=== PATIENT | female | born 1975 | race African-American/Black ===

== ENCOUNTER 2018-04-16 07:43 | Outpatient (CLI) | payer OTHER ==
--- NOTE | 2018-04-16 11:56 | NM ---
PARATHYROID SCAN: DATE: 04/16/18. HISTORY: Elevated PTH, elevated calcium. RADIOPHARMACEUTICAL: 26 mCi Technetium 99m sestamibi, IV. VIEWS OBTAINED: Anterior and oblique 1-hour and 2-hour delayed images with SPECT imaging also performed. FINDINGS: There is normal uptake in the salivary glands. Uptake is seen in each lobe of the thyroid gland whic h is overall symmetric, but there a focal area of increased uptake of radiotracer seen just inferior to the left lobe of the thyroid gland on the 1-hour delayed image which does appear slightly more int ense than that of thyroid gland and also persists on the 2-hour delayed image. No other areas of abn ormal uptake of radiotracer are seen. IMPRESSION: Focus of abnormal uptake of radiotracer is seen just inferior to the left lobe of the thyroid gland w hich may be related to parathyroid lesion such as a parathyroid adenoma. POS: THOMAS
== END 2018-04-16 07:44 | disposition home or self-care (01) ==
LOC: NM 07:43
PROVIDERS: ATTEND Family Medicine
DX: R94.6 Abnormal results of thyroid function studies (principal); R93.8 Abnormal findings on diagnostic imaging of other specified body structures
CPT/HCPCS: 78072; A9500

== ENCOUNTER 2018-06-28 08:21 | Outpatient (CLI) | payer OTHER | END 2018-06-28 08:22 | disposition home or self-care (01) | LOC: BICCT 08:21 | PROVIDERS: ATTEND Family Medicine | DX: E34.9 Endocrine disorder, unspecified (principal); E07.9 Disorder of thyroid, unspecified | CPT/HCPCS: 70492 ==

== ENCOUNTER 2018-09-20 06:46 | Observation (INO) | payer OTHER ==
[2018-09-05 10:14] VITALS: BMI 23.2
[2018-09-20] MEDS ORDERED: Midazolam HCl 2 mg/2 ml Vial ONE ×2 (11:13→11:15)
[2018-09-20] MEDS ORDERED: Fentanyl 100 MCG/2 ML VIAL ONE ×2 (11:13→14:02)
[2018-09-20] MEDS ORDERED: Lidocaine 1% w/Epinephrine 1:100K 30 ML VIAL ONE (11:14)
[2018-09-20] MEDS ORDERED: Dexamethasone 20 MG/5 ML VIAL ONE (11:45)
[2018-09-20] MEDS ORDERED: PROPOFOL 200 MG/20 ML VIAL ONE (11:45)
[2018-09-20] MEDS ORDERED: Lidocaine 1% PF 5 ML VIAL ONE (11:45)
[2018-09-20] MEDS ORDERED: Succinylcholine Chloride 20 MG/ML 10 ml SYRINGE FS ONE (11:45)
[2018-09-20] MEDS ORDERED: Ondansetron PF 4 MG/2 ML Vial ONE (11:45)
[2018-09-20] MEDS ORDERED: Promethazine 25 MG TAB PO PRN (15:46)
[2018-09-20] MEDS ORDERED: Promethazine HCl 25 MG/ML VIAL SLOW IVP PRN (15:46)
[2018-09-20] MEDS: Hydrocodone-Acetamin 15 ML UDCUP PO PRN ×2 (15:56→22:13)
--- NOTE | 2018-09-20 16:27 | OP ---
DATE OF PROCEDURE: 09/20/2018 PREOPERATIVE DIAGNOSES: Hypercalcemia and primary hyperparathyroidism. POSTOPERATIVE DIAGNOSES: Hypercalcemia and primary hyperparathyroidism. PROCEDURE PERFORMED: Neck exploration using laryngeal nerve monitoring with left parathyroidectomy. FINDINGS: The patient was found to have an isolated parathyroid adenoma below the left inferior lobe of the thyroid gland. PROCEDURE IN DETAIL: After consent was obtained, the patient was identified, brought to the operatin g room and placed on the operating table in supine position. General endotracheal anesthesia was obt ained with a nerve integrity endotracheal tube, monitoring endotracheal tube and that was documented to be in appropriate position. We then prepped and draped and positioned the patient, infiltrated th e lower neck with 1% lidocaine with 1:100,000 epinephrine. In a natural skin crease, we made an inci edith through the skin, subcutaneous tissues and dermis. We then dissected down through the platysma and raised subplatysmal flaps both inferiorly and superiorly. The patient had large dilated blood ve ssels were suture ligated when appropriate. Hemostasis was obtained and a self-retaining retractor w as placed. We then divided the strap muscles and got down to the thyroid capsule, which allowed the strap muscles to be retracted laterally as the left thyroid lobe was exposed. With meticulous hemostatic dissection, we were able to identify a left inferior lobe and the associated parathyroid g land, which was carefully removed with caution not to injure any of the surrounding structures or the recurrent laryngeal nerve. This was removed and sent for histologic evaluation and attention was tu rned to closure. The strap muscles were reapproximated as was the platysma and subcutaneous tissues and the skin was closed with a subcuticular suture. Sterile dressings were applied and Steri-Strips and the patient was awakened and taken to recovery room where she remained in stable condition prior to discharge home.
[2018-09-21] MEDS: Hydrocodone-Acetamin 15 ML UDCUP PO PRN ×2 (00:09→08:58)
[2018-09-21 07:23] VITALS: BP 107/65; TEMP 98.6
== END 2018-09-21 10:30 ==
LOC: SDC 06:46 → SURG B 13:59
PROVIDERS: ADMIT Specialist; ATTEND Specialist
PROC: 0GTR0ZZ Resection of Parathyroid Gland, Open Approach (ICD-10-PCS; principal; 2018-09-20)
DX: E21.0 Primary hyperparathyroidism (principal); Z79.899 Other long term (current) drug therapy; Z88.5 Allergy status to narcotic agent
CPT/HCPCS: 85014; 88305; 88331; 88334; 96374; G0378; J1100; J2001; J2250; J2405; J2704; J3010

== ENCOUNTER 2019-02-08 08:33 | Outpatient (CLI) | payer OTHER ==
--- NOTE | 2019-02-08 15:22 | NM ---
NUCLEAR MEDICINE PARATHYROID SCAN: DATE: 02/08/2019. HISTORY: Endocrine disorder, unspecified. Elevated parathyroid hormone. Interval surgery when compared to pr ior parathyroid scan on 04/16/2018 and the patient notes that a parathyroid lesion was removed at the time of surgery. RADIOPHARMACEUTICAL: 20 mCi Technetium 99m sestamibi, IV. VIEWS OBTAINED: Anterior and oblique images as well as SPECT imaging were performed. COMPARISON: 04/16/2018. FINDINGS: Immediate anterior and oblique as well as 1 hour and 2 hour delayed images are obtained of the upper chest, neck, and head. There is normal uptake within the salivary glands bilaterally which is symmetric. There is also symm etric uptake within the thyroid gland bilaterally on the immediate images with normal unexpected wash out of the thyroid glands on delayed imaging. No focal area of increased uptake of radiotracer is se en within the region of the thyroid gland to suggest evidence of a parathyroid adenoma. The previous ly seen focus of increased uptake just posterior and inferior to the left lobe of the thyroid gland i s not visualized on this examination, likely related to interval postsurgical changes. There is a transient focus of increased uptake overlying the left axilla on immediate images which is not visualized on delayed 1 or 2-hour imaging. This could be related to extravasation upon intraven ous injection of the radiotracer. IMPRESSION: 1. No abnormal uptake is seen to suggest evidence of a parathyroid adenoma on this exam. 2. Previously noted focus of increased uptake overlying the left lobe of the thyroid gland is no filomena martha seen, which is likely related to interval postsurgical changes. POS: THOMAS
== END 2019-02-08 08:34 | disposition home or self-care (01) ==
LOC: NM 08:33
PROVIDERS: ATTEND Family Medicine
DX: E34.9 Endocrine disorder, unspecified (principal)
CPT/HCPCS: 78072; A9500